=== PATIENT | male | born 1980 | race Two or more races ===

== ENCOUNTER 2023-06-14 19:05 | Emergency (ER) | payer MEDICARE, SELFPAY ==
[2023-06-14 19:09] VITALS: BP 115/67; PULSE 88; TEMP 36.8; O2SAT 96; BMI 38.3
--- NOTE | 2023-06-14 19:22 | ED_ITS ---
HPI HPI - Back Pain/Injury General Chief Complaint: Back Pain/Injury Stated Complaint: lower back pain Time Seen by Provider: 06/14/23 19:09 Source: patient Mode of arrival: walk-in Limitations: no limitations History of Present Illness HPI Narrative: Patient is a 42-year-old male with a history of chronic low back pain. He states in the last 2 days he has had an increase in pain to the right low back. He has had no injury or trauma. He denies any radicular pain to the legs, he has no paresthesias, urinary symptoms or incontinence. He was seeing a primary care provider in [place] who is prescribing his medications, he takes Lyrica and has been on [place] in the past. He does not currently have a PCP and does not have a specialist for his spine. He has had previous imaging of his back. No medications taken prior to arrival. Related Data Home Medications ?Medication ?Instructions ?Recorded ?Confirmed amlodipine 5 mg tablet 5 mg PO DAILY 06/14/23 06/14/23 duloxetine 60 mg capsule,delayed 60 mg PO BID 06/14/23 06/14/23 release lisinopril 30 mg tablet 30 mg PO DAILY 06/14/23 06/14/23 metformin 500 mg tablet 500 mg PO BID 06/14/23 06/14/23 Previous Rx's ?Medication ?Instructions ?Recorded hydrocodone 5 mg-acetaminophen 325 1 tab PO Q6H PRN pain 3 days #12 06/14/23 mg tablet tabs methocarbamol 750 mg tablet 750 mg PO TID PRN pain #20 tabs 06/14/23 Allergies Allergy/AdvReac Type Severity Reaction Status Date / Time ibuprofen AdvReac Mild Verified 06/14/23 19:13 Opioid HPI Opioid Management Most Recent Opioid Data: Last Pain Scale 10 06/14/23 19:24 Last MAR Pain Assessment 06/14/23 19:24 Review of Systems ROS Constitutional Denies: fever or chills Cardiovascular Denies: chest pain Respiratory Denies: shortness of breath Gastrointestinal Denies: abdominal pain, nausea or vomiting Genitourinary Denies: painful urination Musculoskeletal Reports: back pain; Denies: neck pain or extremity pain Integumentary/Breast Denies: rash Neurological Denies: headache Hematologic/Lymphatic Denies: easy bruising or easy bleeding Exam Narrative Exam Narrative: Gen.: Awake, alert, in no distress Head: Normocephalic, atraumatic ENT: Moist mucous membranes Respiratory: No respiratory distress Gastrointestinal: Abdomen is soft, nondistended and nontender to palpation Back: Diffuse tenderness of the paraspinal muscles of the right lumbar spine, no midline point tenderness of the lumbar spine, no obvious deformity or step-off. No rashes or CVA tenderness. Extremities: Moves extremities equally, Normal dorsiflexion and plantarflexion of lower extremities, no decrease in sensation to the medial thighs Psych: Normal mood and affect Neuro: No focal neuro deficit Skin: Warm, dry, intact Constitutional Vital Signs, click to edit/add: Last Vital Signs Temp 98.3 F 06/14/23 19:09 Pulse 88 06/14/23 19:09 Resp 18 06/14/23 19:09 BP 115/67 06/14/23 19:09 Pulse Ox 96 06/14/23 19:09 O2 Del Method Room Air 06/14/23 19:09 Course Vital Signs Vital signs: Vital Signs Temperature 98.3 F 06/14/23 19:09 Pulse Rate 88 06/14/23 19:09 Respiratory Rate 18 06/14/23 19:09 Blood Pressure 115/67 06/14/23 19:09 Pulse Oximetry 96 06/14/23 19:09 Oxygen Delivery Method Room Air 06/14/23 19:09 Temperature 98.3 F 06/14/23 19:09 Pulse Rate 88 06/14/23 19:09 Respiratory Rate 18 06/14/23 19:09 Blood Pressure 115/67 06/14/23 19:09 Pulse Oximetry 96 06/14/23 19:09 Oxygen Delivery Method Room Air 06/14/23 19:09 MDM - Back Pain/Injury MDM Narrative Medical decision making narrative: No indication for imaging at this time as the patient has had no new mechanism of injury or trauma. He has a normal neuroexam with no focal neurodeficit. OARRS reviewed showing that the patient has been on Lyrica and narcotics in the past from one provider but does not currently have any active prescriptions. He was given a short course of analgesics and muscle relaxants. Treated with Solu- Medrol in the ER but due to his diabetes, we will avoid steroids for home and he is unable to take NSAIDs due to history of gastric bypass. Rest, ice, gentle stretching. Follow-up with PCP and spinal surgery and return to the ER if symptoms change or worsen. Patient given referrals for new primary care providers taking patients as well as local spinal surgery. Medical Records Attestation: I reviewed the patient's medical records. Discharge Plan Discharge Stand Alone Forms: Portal Instructions Chief Complaint: Back Pain/Injury Clinical Impression: Acute exacerbation of chronic low back pain Patient Disposition: Home, Self-Care Time of Disposition Decision: 19:19 Condition: Good Prescriptions / Home Meds: New hydrocodone-acetaminophen 5-325 mg tablet 1 tab PO Q6H PRN (Reason: pain) 3 Days Qty: 12 0RF Rx Instructions: DX: M54.5 methocarbamol 750 mg tablet 750 mg PO TID PRN (Reason: pain) Qty: 20 0RF No Action metformin 500 mg tablet 500 mg PO BID amlodipine 5 mg tablet 5 mg PO DAILY lisinopril 30 mg tablet 30 mg PO DAILY duloxetine 60 mg capsule,delayed release(DR/EC) 60 mg PO BID Print Language: Comoran Instructions: Acute Low Back Pain (ED) Referrals: Socrates Alcantar MD [Physician] - 1 week (Spinal surgery) Discharge Date/Time: 06/14/23 19:40
[2023-06-14] MEDS: OXYCODONE HCL/ACETAMINOPHEN 5MG/325MG 1 TAB PO (19:24)
[2023-06-14] MEDS: METHYLPREDNISOLONE SOD SUCC PF 125 MG/2 ML VIAL IM (19:24)
[2023-06-14] MEDS: ORPHENADRINE 60 MG/ 2 ML VIAL IM (19:24)
== END 2023-06-14 19:40 | disposition home or self-care (01) ==
PROVIDERS: Emergency Provider Internal Medicine
DX: M54.50 Low back pain, unspecified (principal); G89.29 Other chronic pain; Z79.899 Other long term (current) drug therapy; Z79.84 Long term (current) use of oral hypoglycemic drugs
CPT/HCPCS: 96372; 99284; J2919

== ENCOUNTER 2023-06-21 09:59 | Outpatient (OUT) | payer MEDICARE, SELFPAY ==
--- NOTE | 2023-06-21 | XR_ITS ---
The [address] [address] Patient Name: CESARIO ARNOLD MRN: [id number] date: 1980 Sex: M Assigned Patient Location: Current Patient Location: Accession/Order Number: [id number] Exam Date: 06/21/2023 10:10 Report Date: 06/22/2023 07:06 At the request of: JESSICA HARVEY Procedure: XR lumbar spine min 4V EXAMINATION: XR lumbar spine min 4V HISTORY: LUMBAR SPINE PAIN COMPARISON: CT L-spine 03/24/2022 FINDINGS: BONES: Minimal grade 1 retrolisthesis of L1 on 2 and: Stable between flexion, neutral, extension. No fracture or bone lesion. No significant facet arthropathy. DISC SPACES: No significant disc height narrowing, subluxation, or endplate abnormality. PARASPINOUS: Negative. No paraspinous abnormality is seen. OTHER: Negative. XR/XR lumbar spine min 4V IMPRESSION: 1. Minimal degenerative changes; not appreciably changed. Electronically authenticated by: NILO PLASENCIA Date: 06/22/2023 07:06
== END 2023-06-21 10:00 | disposition home or self-care (01) ==
LOC: EC 10:00
PROVIDERS: Visit Provider Orthopaedic Surgery Orthopaedic Surgery of the Spine
DX: M54.50 Low back pain, unspecified (principal)
CPT/HCPCS: 72110

== ENCOUNTER 2023-06-28 06:59 | Outpatient (OUT) | payer MEDICARE, SELFPAY ==
--- NOTE | 2023-06-28 | CT_ITS ---
[address] [address] Patient Name: CESARIO ARNOLD MRN: [facility]:[id number] date: 1980 Sex: M Assigned Patient Location: MRI Current Patient Location: MRI Accession/Order Number: [id number] Exam Date: 06/28/2023 08:45 Report Date: 06/28/2023 11:29 At the request of: JESSICA HARVEY Procedure: CT lumbar spine wo con EXAM: CT lumbar spine wo con HISTORY: intractable back pain COMPARISON: Lumbar spine radiographs 06/21/2023, CT lumbar spine 03/24/2022. TECHNIQUE: Axial noncontrast CT imaging of the lumbar spine was performed with coronal and sagittal reformats. This CT exam was performed using one or more of the following dose reduction techniques: Automated exposure control, adjustment of the MA and/or kV according to patient size, or use of iterative reconstruction technique. FINDINGS: Alignment: No substantial subluxation. Vertebrae: There is similar minimal chronic posterior superior endplate height loss at L1 unchanged from prior. No acute fracture. Degenerative changes: T12-L1: Mild disc height loss. Partially calcified left central protrusion unchanged from prior with minimal canal stenosis. No substantial foraminal stenosis. L1-L2: No substantial canal or foraminal stenosis. L2-L3: Schmorl's nodes are present. Mild diffuse disc bulge with marginal osteophytic spurring. Mild facet arthropathy. No substantial canal or foraminal stenosis. L3-L4: Schmorl's nodes are present. Mild disc height loss. Mild diffuse disc bulge with small right central protrusion. No substantial canal stenosis. Mild right and minimal left foraminal stenosis. L4-L5: Mild diffuse disc bulge with tiny central protrusion. No substantial canal stenosis. Mild bilateral foraminal stenosis. L5-S1: No substantial canal or foraminal stenosis. Upper Sacrum: No focal lesion identified. Additional comments: Visualized soft tissues of the abdomen appear grossly unremarkable. CT/CT lumbar spine wo con IMPRESSION: 1. No acute fracture or malalignment of the lumbar spine. 2. Minimal chronic chronic posterior height loss at L1 unchanged from 2022. 3. Similar appearance of the lumbar spine compared to 03/24/2022 with mild degenerative changes detailed above. Electronically authenticated by: OLGA BUNCH Date: 06/28/2023 11:29
== END 2023-06-28 07:00 | disposition home or self-care (01) ==
PROVIDERS: Visit Provider Orthopaedic Surgery Orthopaedic Surgery of the Spine
DX: M54.50 Low back pain, unspecified (principal); M51.36 Other intervertebral disc degeneration, lumbar region
CPT/HCPCS: 72131

== ENCOUNTER 2023-07-15 11:11 | Outpatient (OUT) | payer MEDICARE, SELFPAY ==
--- NOTE | 2023-07-15 12:40 | P.CN_ITS ---
Consult Note: HPI Data of Consult Patient: new to practice Consult date: 07/15/23 Requesting Physician: Marina Stein MD Primary Care Provider: Non-Staff Physician, Consult Narrative Reason for consult: Low back, bilateral lower extremity pain Narrative: 42yom who presents for evaluation. longstanding low back pain with radiation into bilateral lower extremities. imaging shows multilevel degenerative changes, bilateral foraminal stenosis at l4-5. has been evaluated by neurosurgery, who did not recommend surgery at this time. has engaged in >6 weeks of provider directed home exercise program, without benefit. uses flexeril, lyrica, cymbalta, with some benefit. norco has been helpful before. denies adverse med side effects. cc:: CC: Marina Stein MD Review of Systems ROS Status of ROS 10 or more systems reviewed and unremark able except as noted in history and below Meds Home Medications and Allergies Home Medications ?Medication ?Instructions ?Recorded ?Confirmed ?Type amlodipine 5 mg tablet 5 mg PO DAILY 06/14/23 06/14/23 History duloxetine 60 mg capsule,delayed 60 mg PO BID 06/14/23 06/14/23 History release hydrocodone 5 mg-acetaminophen 325 1 tab PO Q6H PRN pain 3 days #12 06/14/23 Rx mg tablet tabs lisinopril 30 mg tablet 30 mg PO DAILY 06/14/23 06/14/23 History metformin 500 mg tablet 500 mg PO BID 06/14/23 06/14/23 History methocarbamol 750 mg tablet 750 mg PO TID PRN pain #20 tabs 06/14/23 Rx Allergies Allergy/AdvReac Type Severity Reaction Status Date / Time ibuprofen AdvReac Mild Verified 06/14/23 19:13 Exam Narrative Exam Narrative: Psych-alert and oriented x 3. Attentive and appropriate, constitutionally normal, displays normal mood and affect per situation. There are no obvious deficits in memory, reasoning, or intellect.? Skin-no obvious rashes, bruising, erythema noted to the patient's area of pain.? Extremities- extremities are warm with minimal edema and palpable pulses. Lumbar-tenderness to palpation noted in the lumbar spine and paraspinal musculature. Pain is elicited with flexion, extension, and lateral rotation of the lumbar spine. Range of motion is diminished with these motions. Facet loading maneuvers are positive.? Strength-noted to be unremarkable with the exception of decreased strength rated at 4 out of 5 in bilateral quadriceps femoris, anterior tibialis. Sensory-no notable sensory deficits in the bilateral lower extremities to touch or pinprick in all dermatomal distributions with the exception to decreased sensation to the bilateral L3, 4, 5 dermatomal distribution Coordination remains intact.? Gait remains non-antalgic. Assessment and Plan Assessment and Plan (1) Lumbar stenosis with neurogenic claudication: Plan 42yom who presents for evaluation. imaging reviewed, as noted. given symptoms and imaging, prudent to attempt bilateral l4-5 tfesi under fluoroscopic guidance. he is in agreement. meds reviewed. will tryial etodolac 400mg bid prn. uds obtained. follow up after procedure.
== END 2023-07-15 11:12 | disposition home or self-care (01) ==
LOC: PM 11:11
PROVIDERS: Visit Provider Anesthesiology
DX: M48.062 Spinal stenosis, lumbar region with neurogenic claudication (principal)
CPT/HCPCS: G0463

== ENCOUNTER 2023-08-05 10:53 | Day surgery (SDC) | payer MEDICARE, SELFPAY ==
[2023-08-05 11:39] LABS: Glucometer 93 mg/dL (74-106)
[2023-08-05 11:44] VITALS: BP 127/71; PULSE 76; TEMP 36.5; O2SAT 99
[2023-08-05 12:14] VITALS: BP 160/88; PULSE 65; O2SAT 96
[2023-08-05] MEDS: 0.9 % SODIUM CHLORIDE 10 ML SYRINGE - SALINE FLUSH INJ (12:14)
[2023-08-05] MEDS: BUPIVACAINE HCL 0.25% PF 25 MG/10 ML VIAL INJ (12:15)
[2023-08-05] MEDS: IOHEXOL 240 MG/ML - 10 ML VIAL INJ (12:15)
[2023-08-05] MEDS: LIDOCAINE HCL 2% PF 100 MG/5 ML VIAL INJ (12:15)
[2023-08-05] MEDS: TRIAMCINOLONE ACETONIDE 40 MG/ML VIAL INJ (12:15)
--- NOTE | 2023-08-05 12:16 | W.PM.PROCNOT ---
Date of procedure: 08/05/23 Pre-op diagnosis: Lumbar stenosis with neurogenic claudication Post-op diagnosis: same as pre-op Procedure: Procedure: Bilateral L4-5 transforaminal epidural steroid injection Medications: Bupivacaine 0.25% 2cc, lidocaine 2% 1cc, kenalog 80mg The patient was seen and examined in the preoperative holding area.? Informed consent was obtained and placed on the chart.? Patient was brought to the medical procedure unit and placed in the prone position where a timeout was completed verifying the correct patient, procedure site, position, and planned special equipment using sterile aseptic technique.? Under direct fluoroscopic visualization a 25-gauge Quincke tipped spinal needle was advanced at level left L4-5 to the designated neural foramen where contrast dye was injected to show adequate spread.? There was no evidence of vascular or adverse uptake.? Epidural spread was appreciated.? The above-mentioned injectate was then placed in a 1.5 mL aliquot preceded by negative aspiration.? The needle was removed. The same procedure, at the same level, was completed on the opposite side. ? Patient was taken to the postprocedural recovery area and monitored for an appropriate length of time before found suitable for discharge in the accompaniment of a responsible adult. Anesthesia: Local Surgeon: Marina Steni Pathology: none sent Condition: stable Disposition: no change
[2023-08-05 12:17] VITALS: BP 126/62; PULSE 67; O2SAT 97
== END 2023-08-05 12:20 | disposition home or self-care (01) ==
LOC: SURGOUT 10:54
PROVIDERS: Visit Provider Anesthesiology
DX: M48.062 Spinal stenosis, lumbar region with neurogenic claudication (principal); Z79.84 Long term (current) use of oral hypoglycemic drugs
CPT/HCPCS: 36415; 64483; 82948; Q9966

== ENCOUNTER 2023-08-22 12:11 | Outpatient (OUT) | payer MEDICARE, SELFPAY ==
--- NOTE | 2023-08-22 12:19 | P.CN_ITS ---
Consult Note: HPI Data of Consult Patient: known to practice within the last 3 years Consult date: 07/15/23 Requesting Physician: Jenny Ledesma NP Primary Care Provider: Non-Staff Physician, MD Consult Narrative Reason for consult: Low back, bilateral lower extremity pain Narrative: 42yom who presents for evaluation. longstanding low back pain with radiation into bilateral lower extremities. imaging shows multilevel degenerative changes, bilateral foraminal stenosis at l4-5. has been evaluated by neurosurgery, who did not recommend surgery at this time. has engaged in >6 weeks of provider directed home exercise program, without benefit. uses flexeril, lyrica, cymbalta, with some benefit. norco has been helpful before. denies adverse med side effects. Recently underwent bilateral L4-5 TFESI with 40% improvement for 2 days, no ongoing improvement. Pain 9/10 throbbing burning. cc:: CC: Jenny Ledesma NP Review of Systems ROS Status of ROS 10 or more systems reviewed and unremark able except as noted in history and below Musculoskeletal Reports: back pain and extremity pain PFSH PFS Medical History (Updated 07/15/23 @ 13:29 by Marybeth Ashby) Diabetes ?E11.9 - Type 2 diabetes mellitus without complications (ICD-10) High blood pressure ?I10 - Essential (primary) hypertension (ICD-10) Meds Home Medications and Allergies Home Medications ?Medication ?Instructions ?Recorded ?Confirmed ?Type amlodipine 5 mg tablet 5 mg PO DAILY 06/14/23 08/05/23 History duloxetine 60 mg capsule,delayed 60 mg PO BID 06/14/23 08/05/23 History release lisinopril 30 mg tablet 30 mg PO DAILY 06/14/23 08/05/23 History metformin 500 mg tablet 500 mg PO BID 06/14/23 08/05/23 History clonidine HCl 0.2 mg tablet 0.5 mg DAILY 07/15/23 History cyclobenzaprine 10 mg tablet 10 mg PO DAILY 07/15/23 08/05/23 History etodolac 400 mg tablet 400 mg PO BID 07/15/23 08/05/23 History pregabalin 100 mg capsule (Lyrica) 100 mg PO BID 07/15/23 08/05/23 History Allergies Allergy/AdvReac Type Severity Reaction Status Date / Time ibuprofen AdvReac Mild Verified 08/05/23 11:42 Exam Narrative Exam Narrative: Psych-alert and oriented x 3. Attentive and appropriate, constitutionally normal, displays normal mood and affect per situation. There are no obvious deficits in memory, reasoning, or intellect.? Skin-no obvious rashes, bruising, erythema noted to the patient's area of pain.? Extremities- extremities are warm with minimal edema and palpable pulses. Lumbar-tenderness to palpation noted in the lumbar spine and paraspinal musculature. Pain is elicited with flexion, extension, and lateral rotation of the lumbar spine. Range of motion is diminished with these motions. Facet loading maneuvers are positive.? Strength-noted to be unremarkable with the exception of decreased strength rated at 4 out of 5 in bilateral quadriceps femoris, anterior tibialis. Sensory-no notable sensory deficits in the bilateral lower extremities to touch or pinprick in all dermatomal distributions with the exception to decreased sensation to the bilateral L3,4,5 dermatomal distribution Coordination remains intact.? Gait remains non-antalgic. Results Additional Findings Additional findings: If on a controlled substance or opioids, I have checked an OARRS report on this patient and there are no aberrancies noted in the prescribing history.??If on a controlled substance or opioid a drug screen was completed and reviewed within the last year, and if there has not been a drug screen completed we ordered one today to monitor higher risk, state monitored pain medication use. As part of providing excellent, safe, comprehensive care, the following was completed at our patient's visit: 1. A medication reconciliation and review to ensure accurate knowledge of current/active medications, including asking our patients to inform us about any [id number] medications or herbal remedies/nutritional supplements/alternative remedies. 2. A review to specifically ensure our patients have had annual screening for screening for depression, screening for tobacco use, and screening for unhealthy alcohol use. For concerning screenings had a discussion with the patient, provided patient education, and recommended follow-up with primary care provider when appropriate. If patient noted with a risk of falling, they received education on strength, gait, and balance training to prevent future risk of falling. Assessment and Plan Assessment and Plan (1) Lumbar stenosis with neurogenic claudication: Plan 42yom who presents for evaluation. imaging reviewed, as noted. given symptoms and imaging, prudent to attempt bilateral l3-4 tfesi under fluoroscopic guidance. he is in agreement. NNCP marijuana use. continue medications through PCP. avoid NSAIDs, hx of gastric bypass. consider SCS trial if radicular pain/NC symptoms persist, consider bilateral L4- S1 MBBs for axial low back pain f/u 2 weeks after [facility]A
--- OUTSIDE RECORDS SUMMARY | 2023-08-22 12:26 | XMS_ITS | CCD ---
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 Spectrometry Performed By: #### L [id number] #### [facility] ([facility])) [address] [place] [address] BARBITURATES, URINE (CUTOFF 200 NG/ML) Negative Normal [facility] Comment on above: Order Comment: Please call [facility] at [phone] for Util[employer] consultation or assistance with interpretation if needed. Result Comment: Presumptive negative by immunoassay. Testing by mass spectrometry is available on request. INTERPRETIVE INFORMATION:Barbiturates Screen, U Positive Cutoff: 200 ng/mL Methodology: Immunoassay Performed By: #### L [id number] #### [facility]) [address] [place] [address] BENZOYLECGONINE, URINE (CUTOFF 150 NG/ML) Negative Normal [facility] Comment on above: Order Comment: Please call [facility] at [phone] for Util[employer] consultation or assistance with interpretation if needed. Result Comment: Presumptive negative by immunoassay. Testing by mass spectrometry is available on request. INTERPRETIVE INFORMATION:Cocaine Screen, U Positive Cutoff: 150 ng/mL Methodology: Immunoassay Performed By: #### L [id number] #### [facility]) [address] [place] [address] BUPRENORPHINE, URINE (CUTOFF 5 NG/ML) Not detected Normal [facility] Comment on above: Order Comment: Please call [facility] at [phone] for Utilities [employer]ator [employer] Dra[employer] consultation or assistance with interpretation if needed. Result Comment: INTE RPRETIVE INFORMATION:Buprenorphine, U Positive Cutoff: 5 ng/mL Methodology: Mass Spectrometry Performed By: #### L [id number] #### [facility])) [address] [place] [address] CARISOPRODOL, URINE (CUT-OFF 100 NG/ML) Negative Normal [facility] Comment on above: Order Comment: Please call [facility] at [phone] for Utilities [employer]ator [employer] Dra[employer] consultation or assistance with interpretation if needed. Result Comment: Presumptive negative by immunoassay. Testing by mass spectrometry is available on request. INTERPRETIVE INFORMATION: Carisoprodol Screen, U Positive Cutoff: 100 ng/mL Methodology: Immunoassay The carisoprodol immunoassay has cross-reactivity to carisoprodol and meprobamate. Performed By: #### L [id number] #### [employer]) [address] [place] [address] CLONAZEPAM, URINE (CUTOFF 20 NG/ML) Not detected Normal [facility] Comment on above: Order Comment: Please call [employer] at [phone] for Utilities [employer]ator [employer] Drafter consultation or assistance with interpretation if needed. Result Comment: INTE RPRETIVE INFORMATION:Clonazepam, U Positive Cutoff: 20 ng/mL Methodology: Mass Spectrometry Performed By: #### L [id number] #### [facility] ([facility]) [address] [place] [address] CODEINE, URINE (CUTOFF 40 NG/ML) Not detected Normal [facility] Comment on above: Order Comment: Please call [employer] at [phone] for Utilities [employer]ator [employer] Dra[employer] consultation or assistance with interpretation if needed. Result Comment: INTE RPRETIVE INFORMATION: Codeine, U Positive Cutoff: 40 ng/mL Methodology: Mass Spectrometry Performed By: #### L [id number] #### [facility] ([facility]) [address] [place] [address] CREATININE, URINE 39.1 mg/dL Normal 20.0-400.0 [facility] Comment on above: Order Comment: Please call [employer] at [phone] for Utilities [employer]ator [employer] Dra[employer] consultation or assistance with interpretation if needed. Performed By: #### L [id number] #### [facility] ([employer]) [address] [place] [address] DIAZEPAM, URINE (CUTOFF 50 NG/ML) Not detected Normal [facility] Comment on above: Order Comment: Please call [employer] at [phone] for Utilities Est[employer]ator [employer] Drafter consultation or assistance with interpretation if needed. Result Comment: INTE RPRETIVE INFORMATION:Diazepam, U Positive Cutoff: 50 ng/mL Methodology: Mass Spectrometry Performed By: #### L [id number] #### [facility] [address] [place] [address] EER TGT DRUG PROF, MS/EMIT, UR See Note Normal [facility] Comment on above: Order Comment: Please call [employer] at [phone] for Utilities Est[employer]ator [employer] Drafter consultation or assistance with interpretation if needed. Result Comment: Auth orized individuals can access the [employer] using the following link: [email or web address] Performed By: [employer] [address] [place] [address] Social Services Director: Alvaro Bird MD, PhD CLIA Number: [id number] Performed By: #### L [id number] #### [facility] ([facility])) [address] [place] [address] ETHYL GLUCURONIDE, URINE (CUTOFF 500 NG/ML) Negative Normal [facility] Comment on above: Order Comment: Please call [facility] at [phone] for Utilities [employer] consultation or assistance with interpretation if needed. Result Comment: Presumptive negative by immunoassay. Testing by mass spectrometry is available on request. INTERPRETIVE INFORMATION:Ethyl Glucuronide Screen, U Positive Cutoff: 500 ng/mL Methodology: Immunoassay Performed By: #### L [id number] #### [facility] ([facility])) [address] [place] [address] FENTANYL, URINE (CUTOFF 2 NG/ML) Not detected Normal [facility] Comment on above: Order Comment: Please call [facility] at [phone] for Utilities [employer]ator [employer] Dra[employer] consultation or assistance with interpretation if needed. Result Comment: INTE RPRETIVE INFORMATION:Fentanyl, U Positive Cutoff: 2 ng/mL Methodology: Mass Spectrometry Performed By: #### L [id number] #### [facility] ([facility])) [address] [place] [address] GABAPENTIN, URINE (CUTOFF 100 NG/ML) Not detected Normal [facility] Comment on above: Order Comment: Please call [facility] at [phone] for Utilities [employer]ator [employer] consultation or assistance with interpretation if needed. Result Comment: INTE RPRETIVE INFORMATION:Gabapentin, U Positive Cutoff: 3,000 ng/mL Methodology: Mass Spectrometry Performed By: #### L [id number] #### [facility] ([facility])) [address] [place] [address] HYDROCODONE, URINE (CUTOFF 40 NG/ML) Not detected Normal [facility] Comment on above: Order Comment: Please call [facility] at [phone] for Utilities Est[employer]ator [employer] Dra[employer] consultation or assistance with interpretation if needed. Result Comment: INTE RPRETIVE INFORMATION:Hydrocodone, U Positive Cutoff: 40 ng/mL Methodology: Mass Spectrometry Performed By: #### L [id number] #### [facility] ([facility])) [address] [place] [address] HYDROMORPHONE, URINE (CUTOFF 20 NG/ML) Not detected Normal [facility] Comment on above: Order Comment: Please call [facility] at [phone] for Utilities Est[employer]ator [employer] Drafter consultation or assistance with interpretation if needed. Result Comment: INTE RPRETIVE INFORMATION:Hydromorphone, U Positive Cutoff: 20 ng/mL Methodology: Mass Spectrometry Performed By: #### L [id number] #### [facility] ([facility])) [address] [place] [address] LORAZEPAM, URINE (CUTOFF 60 NG/ML) Not detected Normal [facility] Comment on above: Order Comment: Please call [facility] at [phone] for Utilities Est[employer]ator [employer] Dra[employer] consultation or assistance with interpretation if needed. Result Comment: INTE RPRETIVE INFORMATION:Lorazepam, U Positive Cutoff: 60 ng/mL Methodology: Mass Spectrometry Performed By: #### L [id number] #### [facility] ([facility])) [address] [place] [address] MARIJUANA METABOLITE, URINE (CUTOFF 20 NG/ML) PresumptivePOS Normal [facility] Comment on above: Order Comment: Please call [facility] at [phone] for Utilities [employer] consultation or assistance with interpretation if needed. Result Comment: Presumptive positive by immunoassay. Testing by mass spectrometry is available on request. INTERPRETIVE INFORMATION: THC (Cannabinoids) Screen, U Positive Cutoff: 50 ng/mL Methodology: Immunoassay Performed By: #### L [id number] #### [facility] ([facility])) [address] [place] [address] MDA, URINE (CUTOFF 200 NG/ML) Not detected Normal [facility] Comment on above: Order Comment: Please call [facility] at [phone] for Utilities [employer]ator [employer] Dra[employer] consultation or assistance with interpretation if needed. Result Comment: INTE RPRETIVE INFORMATION:MDA, U Positive Cutoff: 200 ng/mL Methodology: Mass Spectrometry Performed By: #### L [id number] #### [facility] ([facility])) [address] [place] [address] MDEA- MARCIA, URINE (CUTOFF 200 NG/ML) Not detected Normal [facility] Comment on above: Order Comment: Please call [facility] at [phone] for Utilities Est[employer]ator [employer] Drafter consultation or assistance with interpretation if needed. Result Comment: INTE RPRETIVE INFORMATION:MDEA, U Positive Cutoff: 200 ng/mL Methodology: Mass Spectrometry Performed By: #### L [id number] #### [facility] ([facility]) [address] [place] [address] MDMA- ECSTASY, URINE (CUTOFF 200 NG/ML) Not detected Normal [facility] Comment on above: Order Comment: Please call [facility] at [phone] for Utilities Estimator [employer] Drafter consultation or assistance with interpretation if needed. Result Comment: INTE RPRETIVE INFORMATION:MDMA, U Positive Cutoff: 200 ng/mL Methodology: Mass Spectrometry Performed By: #### L [id number] #### [facility] ([facility]) [address] [place] [address] MEPERIDINE METABOLITE, URINE (CUTOFF 50 NG/ML) Not detected Normal [facility] Comment on above: Order Comment: Please call [facility] at [phone] for Utilities Est[employer]ator [employer] Drafter consultation or assistance with interpretation if needed. Result Comment: INTE RPRETIVE INFORMATION:Meperidine metabolite, U Positive Cutoff: 50 ng/mL Methodology: Mass Spectrometry Performed By: #### L [id number] #### [facility] ([employer]) [address] [place] [address] METHADONE, URINE (CUTOFF 150 NG/ML) Negative Normal [facility] Comment on above: Order Comment: Please call [facility] at [phone] for Utilities [employer]ator [employer] Drafter consultation or assistance with interpretation if needed. Result Comment: Presumptive negative by immunoassay. Testing by mass spectrometry is available on request. INTERPRETIVE INFORMATION: Methadone Screen, U Positive Cutoff: 150 ng/mL Methodology: Immunoassay Performed By: #### L [id number] #### [facility] ([employer]) [address] [place] [address] METHAMPHETAMINE, URINE (CUTOFF 200 NG/ML) Not detected Normal [facility] Comment on above: Order Comment: Please call [facility] at [phone] for Utilities Estimator [employer] Drafter consultation or assistance with interpretation if needed. Result Comment: INTE RPRETIVE INFORMATION:Methamphetamine, U Positive Cutoff: 200 ng/mL Methodology: Mass Spectrometry Performed By: #### L [id number] #### [facility] ([employer]) [address] [place] [address] METHYLPHENIDATE, URINE (CUTOFF 100 NG/ML) Not detected Normal [facility] Comment on above: Order Comment: Please call [facility] at [phone] for Utilities [employer]ator [employer] Dra[employer] consultation or assistance with interpretation if needed. Result Comment: INTE RPRETIVE INFORMATION:Methylphenidate, U Positive Cutoff: 100 ng/mL Methodology: Mass Spectrometry Performed By: #### L [id number] #### [facility] ([facility])) [address] [place] [address] MIDAZOLAM, URINE (CUTOFF 20 NG/ML) Not detected Normal [facility] Comment on above: Order Comment: Please call [facility] at [phone] for Utilities [employer]ator [employer] Dra[employer] consultation or assistance with interpretation if needed. Result Comment: INTE RPRETIVE INFORMATION:Midazolam, U Positive Cutoff: 20 ng/mL Methodology: Mass Spectrometry Performed By: #### L [id number] #### [facility] ([place] [address] MORPHINE, URINE (CUTOFF 20 NG/ML) Not detected Normal [facility] Comment on above: Order Comment: Please call [facility] at [phone] for Utilities [employer] consultation or assistance with interpretation if needed. Result Comment: INTE RPRETIVE INFORMATION:Morphine, U Positive Cutoff: 20 ng/mL Methodology: Mass Spectrometry Performed By: #### L [id number] #### [facility] ([address] [address] NALOXONE, URINE (CUTOFF 100 NG/ML) Not detected Normal [facility] Comment on above: Order Comment: Please call [facility] at [phone] for Utilities [employer]ator [employer] Dra[employer] consultation or assistance with interpretation if needed. Result Comment: INTE RPRETIVE INFORMATION:Naloxone, U Positive Cutoff: 100 ng/mL Methodology: Mass Spectrometry Performed By: #### L [id number] #### [facility] ([facility])) [address] [place] [address] NORBUPRENORPHINE, URINE (CUTOFF 20 NG/ML) Not detected Normal [facility] Comment on above: Order Comment: Please call [facility] at [phone] for Utilities [employer]ator [employer] Dra[employer] consultation or assistance with interpretation if needed. Result Comment: INTE RPRETIVE INFORMATION:Norbuprenorphine, U Positive Cutoff: 20 ng/mL Methodology: Mass Spectrometry Performed By: #### L [id number] #### [facility] ([facility]) [address] [place] [address] NORDIAZEPAM, URINE (CUTOFF 50 NG/ML) Not detected Normal [facility] Comment on above: Order Comment: Please call [facility] at [phone] for Utilities [employer] consultation or assistance with interpretation if needed. Result Comment: INTE RPRETIVE INFORMATION:Nordiazepam, U Positive Cutoff: 50 ng/mL Methodology: Mass Spectrometry Performed By: #### L [id number] #### [facility] ([facility]) [address] [place] [address] NORFENTANYL, URINE (CUTOFF 2 NG/ML) Not detected Normal [facility] Comment on above: Order Comment: Please call [facility] at [phone] for Utilities [employer] consultation or assistance with interpretation if needed. Result Comment: INTE RPRETIVE INFORMATION:Norfentanyl, U Positive Cutoff: 2 ng/mL Methodology: Mass Spectrometry Performed By: #### L [id number] #### [facility] ([facility]) [address] [place] [address] NORHYDROCODONE, URINE ???(CUTOFF 100 NG/ML) Not detected Normal [facility] Comment on above: Order Comment: Please call [facility] at [phone] for Utilities [employer]ator [employer] Dra[employer] consultation or assistance with interpretation if needed. Result Comment: INTE RPRETIVE INFORMATION:Norhydrocodone, U Positive Cutoff: 100 ng/mL Methodology: Mass Spectrometry Performed By: #### L [id number] #### [facility] ([facility]) [address] [place] [address] NOROXYCODONE, URINE ???(CUTOFF 100 NG/ML) Not detected Normal [facility] Comment on above: Order Comment: Please call [facility] at [phone] for Utilities [employer] Dra[employer] consultation or assistance with interpretation if needed. Result Comment: INTE RPRETIVE INFORMATION:Noroxycodone, U Positive Cutoff: 100 ng/mL Methodology: Mass Spectrometry Performed By: #### L [id number] #### [facility] ([facility])) [address] [place] [address] NOROXYMORPHONE, URINE ???(CUTOFF 100 NG/ML) Not detected Normal [facility] Comment on above: Order Comment: Please call [facility] at [phone] for Utilities [employer] consultation or assistance with interpretation if needed. Result Comment: INTE RPRETIVE INFORMATION:Noroxymorphone, U Positive Cutoff: 100 ng/mL Methodology: Mass Spectrometry Performed By: #### L [id number] #### [facility] ([facility])) [address] [place] [address] OXAZEPAM, URINE (CUTOFF 50 NG/ML) Not detected Normal [facility] Comment on above: Order Comment: Please call [facility] at [phone] for Utilities [employer] consultation or assistance with interpretation if needed. Result Comment: INTE RPRETIVE INFORMATION:Oxazepam, U Positive Cutoff: 50 ng/mL Methodology: Mass Spectrometry Performed By: #### L [id number] #### [facility] ([facility]) [address] [place] [address] OXYCODONE, URINE (CUTOFF 40 NG/ML) Not detected Normal [facility] Comment on above: Order Comment: Please call [facility] at [phone] for Utilities [employer] consultation or assistance with interpretation if needed. Result Comment: INTE RPRETIVE INFORMATION:Oxycodone, U Positive Cutoff: 40 ng/mL Methodology: Mass Spectrometry Performed By: #### L [id number] #### [facility] ([facility]) [address] [place] [address] OXYMORPHONE, URINE (CUTOFF 40 NG/ML) Not detected Normal [facility] Comment on above: Order Comment: Please call [facility] at [phone] for [employer]ities [employer] consultation or assistance with interpretation if needed. Result Comment: INTE RPRETIVE INFORMATION:Oxymorphone, U Positive Cutoff: 40 ng/mL Methodology: Mass Spectrometry Performed By: #### L [id number] #### [facility] ([employer]) [address] [place] [address] PCP, URINE (CUTOFF 25 NG/ML) Negative Normal [facility] Comment on above: Order Comment: Please call [facility] at [phone] for [employer] consultation or assistance with interpretation if needed. Result Comment: Presumptive negative by immunoassay. Testing by mass spectrometry is available on request. INTERPRETIVE INFORMATION:Phencyclidine Screen, U Positive Cutoff: 25 ng/mL Methodology: Immunoassay Performed By: #### L [id number] #### [facility] ([facility]) [address] [place] [address] PHENTERMINE, URINE (CUTOFF 100 NG/ML) Not detected Normal [facility] Comment on above: Order Comment: Please call [facility] at [phone] for Utilities Estimator And Drafter consultation or assistance with interpretation if needed. Result Comment: INTE RPRETIVE INFORMATION:Phentermine, U Positive Cutoff: 100 ng/mL Methodology: Mass Spectrometry Performed By: #### L [id number] #### [facility] ([employer]) [address] [place] [id number] PREGABALIN, URINE (CUTOFF 100 NG/ML) Present Normal [facility] Comment on above: Order Comment: Please call [facility] at [phone] for Utilities Estimator And Drafter consultation or assistance with interpretation if needed. Result Comment: INTE RPRETIVE INFORMATION:Pregabalin, U Positive Cutoff: 3,000 ng/mL Methodology: Mass Spectrometry Performed By: #### L [id number] #### [facility] ([employer]) [address] [place] [address] TAPENTADOL, URINE (CUTOFF 100 NG/ML) Not detected Normal [facility] Comment on above: Order Comment: Please call [facility] at [phone] for Utilities Estimator And Drafter consultation or assistance with interpretation if needed. Result Comment: INTE RPRETIVE INFORMATION:Tapentadol, U Positive Cutoff: 100 ng/mL Methodology: Mass Spectrometry Performed By: #### L [id number] #### [facility] ([employer]) [address] [place] [address] [id number]-X-[id number], URINE (CUTOFF 200 NG/ML) Not detected Normal [facility] Comment on above: Order Comment: Please call [facility] at [phone] for Utilities Estimator And Drafter consultation or assistance with interpretation if needed. Result Comment: INTE RPRETIVE INFORMATION:Xtgenlmtfq-j-Mhlq, U Positive Cutoff: 200 ng/mL Methodology: Mass Spectrometry Performed By: #### L [id number] #### [facility] ([facility] [address] [place] [address] TARGETED DRUG PROFILE PANEL See Below Normal [facility] Comment on above: Order Comment: Please call [facility] at [phone] for Utilities Estimator And Drafter consultation or assistance with interpretation if needed. Result Comment: Meth odology: Qualitative Enzyme Immunoassay and Qualitative Liquid Chromatography-Tandem Mass Spectrometry, Quantitative Spectrophotometry The absence of expected drug(s) and/or drug metabolite(s) may indicate non-compliance, inappropriate timing of specimen collection relative to drug administration, poor drug absorption, diluted/adulterated urine, or limitations of testing. The concentration must be greater than or equal to the cutoff to be reported as present. If specific drug concentrations are required, contact the laboratory within two weeks of specimen collection to request quantification by a second analytical technique. Interpretive questions should be directed to the laboratory. Results based on immunoassay detection that do not match clinical expectations should be interpreted with caution. Confirmatory testing by mass spectrometry for immunoassay-based results is available, if ordered within two weeks of specimen collection. Additional charges apply. For medical purposes only; not valid for forensic use. This test was developed and its performance characteristics determined by [employer]. It has not been cleared or approved by the US Food and Drug Administration. This test was performed in a CLIA certified laboratory and is intended for clinical purposes. Performed By: #### L [id number] #### [employer] ([facility] [address] [place] [address] TEMAZEPAM, URINE (CUTOFF 50 NG/ML) Not detected Normal [facility] Comment on above: Order Comment: Please call [facility] at [phone] for Utilities Estimator And Drafter consultation or assistance with interpretation if needed. Result Comment: INTE RPRETIVE INFORMATION:Temazepam, U Positive Cutoff: 50 ng/mL Methodology: Mass Spectrometry Performed By: #### L [id number] #### [facility] ([facility])) [address] [place] [address] TRAMADOL, URINE (CUTOFF 100 NG/ML) Negative Normal [facility] Comment on above: Order Comment: Please call [facility] at [phone] for Utilities Estimator And Drafter consultation or assistance with interpretation if needed. Result Comment: Presumptive negative by immunoassay. Testing by mass spectrometry is available on request. INTERPRETIVE INFORMATION:Tramadol Screen, U Positive Cutoff: 100 ng/mL Methodology: Immunoassay Performed By: #### L [id number] #### [facility] ([facility] [address] [place] [address] ZOLPIDEM METABOLITE, URINE (CUTOFF 100 NG/ML) Not detected Normal [facility] Comment on above: Order Comment: Please call [facility] at [phone] for Utilities Estimator And Drafter consultation or assistance with interpretation if needed. Result Comment: INTE RPRETIVE INFORMATION:Zolpidem Metabolite, U Positive Cutoff: 100 ng/mL Methodology: Mass Spectrometry Performed By: #### L [id number] #### [facility] ([facility] [address] [place] [address] ZOLPIDEM, URINE (CUTOFF 20 NG/ML) Not detected Normal [facility] Comment on above: Order Comment: Please call [facility] at [phone] for Utilities Estimator And Drafter consultation or assistance with interpretation if needed. Result Comment: INTE RPRETIVE INFORMATION:Zolpidem, U Positive Cutoff: 20 ng/mL Methodology: Mass Spectrometry Performed By: #### L [id number] #### [facility] ([facility] [address] [place] [address] [facility] 11-22-2022 Refill [id number] Chiquis Vieira Jr. 1980 M Date Provider Department Center 11/22/2022 [id number] SORIANO [facility] Comprehensiv Family History Problem Relation Age of Onset Kidney disease Mother Diabetes Mother Depression Mother Anxiety disorder Mother Diabetes Father Family Status - Relation Status Age at Mother Father Alive Reason for Visit and Comments: Med Refill [[id number]] Normal [facility] 2022 Refill [id number] Chiquis Vieira Jr. 1980 M Date Provider Department Center 2022 [id number], MANI [facility] Comprehensiv Family History Problem Relation Age of Onset Kidney disease Mother Diabetes Mother Depression Mother Anxiety disorder Mother Diabetes Father Family Status - Relation Status Age at Mother Father Alive Reason for Visit and Comments: Med Refill [[id number]] Normal [facility] 36on 10-29-2022 36 Script requested twi ce a request has already been sent to the provider. [facility] 10-29-2022 Refill [id number] Chiquis Vieira Jr. 1980 M Date Provider Department Center 10/29/2022 [id number] SORIANO [facility] Comprehensiv Family History Problem Relation Age of Onset Kidney disease Mother Diabetes Mother Depression Mother Anxiety disorder Mother Diabetes Father Family Status - Relation Status Age at Mother Father Alive Reason for Visit and Comments: Med Refill [[id number]] [facility] Office Visiton 10-22-2022 Follow-up visit [id number] Chiquis Vieira Jr. 1980 M Date Provider Department Center 10/22/2022 [id number] SORIANO [facility] Comprehensiv Family History Problem Relation Age of Onset Kidney disease Mother Diabetes Mother Depression Mother Anxiety disorder Mother Diabetes Father Family Status - Relation Status Age at Mother Father Alive Level of Service:42511 ID OFFICE/OUTPATIENT ESTABLISHED MOD MDM 30-39 MIN Reason for Visit and Comments: Med Refill [[id number]] - Patient states that he is here today for medication refills and would like to discuss getting diabetic shoes. [facility] 36on 10-11-2022 36 Patients fiance call ing for update on if refill has been placed as patient is out of medication. I at this time did educate caller on calling a few days before meds are supposed to be gone. Please advise. Thank you kindly. [facility] 10-11-2022 Refill [id number] Chiquis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 alert. Cranial Nerves: No cranial nerve deficit. Sensory: No sensory deficit. Psychiatric: Mood and Affect: Mood normal. Behavior: Behavior normal. Thought Content: Thought content normal. Judgment: Judgment normal. Assessment/Plan Diagnoses and all orders for this visit: Partial thickness burn of finger of left hand, initial encounter - bacitracin 500 unit/gram ointment; Apply topically in the morning and at bedtime. Apply to burn area - Ambulatory referral to Wound Clinic; Future - To return to clinic in 1 week or 2 weeks (2 weeks if seen by wound care clinic earlier) - Discussed with him about gauze dressing to keep area clean and dry and bacitracin for antibiotic ointment Numbness of upper extremity - Ambulatory referral to Neurology; Future - XR cervical spine complete 4 to 5 views; Future Chronic bilateral low back pain with bilateral sciatica Comments: on pain meds, PM denied any procedures, PT, conservative management Orders: - pregabalin (Lyrica) 100 mg capsule; Take 1 capsule (100 mg) by mouth in the morning and at bedtime. - Pain management drug panel, urine; Future Recurrent major depressive disorder, in partial remission (CMS/HCC) - DULoxetine (Cymbalta) [address] capsule; TAKE 1 CAPSULE(60 MG) BY MOUTH IN THE MORNING AND AT BEDTIME. DO NOT CRUSH OR CHEW Marijuana use - POCT [facility] Urine Drug Screen, Send out - Pain management drug panel, urine; Future Bilateral sciatica - CBC; Future - Basic metabolic panel; Future - POCT [facility] Urine Drug Screen, Send out - Pain management drug panel, urine; Future Diagnosis Plan 1. Partial thickness burn of finger of left hand, initial encounter bacitracin 500 unit/gram ointment Ambulatory referral to Wound Clinic 2. Numbness of upper extremity Ambulatory referral to Neurology XR cervical spine complete 4 to 5 views 3. Chronic bilateral low back pain with bilateral sciatica (more content not included)... [facility] Progress note 10-22-2022 Note Date & Type Note Facility 10-22-2022 Note Subjective Patient ID: Cesario Vieira . is a 41 y.o. male who presents for Med Refill (Patient states that he is here today for medication refills and would like to discuss getting diabetic shoes.). Med Refill Has chronic alyson back pain on opioid therapy due to resistant pain with conventional management PEG score with narcotics is 5/10 and he benefits from therapy, no constipation no other side effects, without the pain med the level is 8/10. OARRS checked. Drug urine is uptodate Last A1c 04/26 5.5 not on meds, discussed the need for metformin will start it MRI Lumbar spine showed 04/26 multi level DJD no canal stenosis diffuse buldging and disk disease MRI thoracic spine at that time showed concern for demyelinating disease At that time was referred to neurology but no visit documented so far. Advised to call and make appointment for this. Encouraged on losing weight and lifestyle changes HTN on 2 meds, BP is under control, low salt diet. He has gait problem and he needs new PT, will make referral. Review of Systems Musculoskeletal: Positive for back pain. All other systems reviewed and are negative. Objective Visit Vitals BP 110/70 (BP Location: Right arm, Patient Position: Sitting, BP Cuff Size: Large adult) Pulse 83 Temp 36.3 ???C (97.4 ???F) (Tympanic) Resp 20 Physical Exam Vitals and nursing note reviewed. Constitutional: General: He is not in acute distress. Appearance: Normal appearance. Cardiovascular: Rate and Rhythm: Normal rate and regular rhythm. Pulses: Normal pulses. Heart sounds: No murmur heard. No friction rub. No gallop. Pulmonary: Effort: Pulmonary effort is normal. No respiratory distress. Breath sounds: Normal breath sounds. No wheezing, rhonchi or rales. Abdominal: General: There is no distension. Palpations: Abdomen is soft. Tenderness: There is no abdominal tenderness. There is no guarding or rebound. Musculoskeletal: Right lower leg: No edema. Left lower leg: No edema. Skin: General: Skin is warm and dry. Neurological: Mental Status: He is alert and oriented to person, place, and time. Assessment/Plan Diagnoses and all orders for this visit: Chronic bilateral low back pain with bilateral sciatica Comments: on pain meds, PM denied any procedures, PT, conservative management Orders: - pregabalin (Lyrica) 100 mg capsule; Take 1 capsule (100 mg) by mouth in the morning and at bedtime. - Ambulatory referral to Physical Therapy; Future Class 2 obesity due to excess calories without serious comorbidity with body mass index (BMI) of 36.0 to 36.9 in adult Comments: Advised on lifestyle change, dietary referral Essential hypertension Comments: HTN under control on 2 meds, no change is needed Prediabetes Comments: will start him on Metformin Orders: - Ambulatory referral to Podiatry; Future - Comprehensive metabolic panel; Future - metFORMIN (Glucophage) 500 mg tablet; Take 1 tablet (500 mg) by mouth with breakfast and with evening meal. History of gastric bypass Comments: regaining weight Marijuana user Comments: admitted that he uses as needed for pain Diagnosis Plan 1. Chronic bilateral low back pain with bilateral sciatica pregabalin (Lyrica) 100 mg capsule Ambulatory referral to Physical Therapy on pain meds, PM denied any procedures, PT, conservative management 2. Class 2 obesity due to excess calories without serious comorbidity with body mass index (BMI) of 36.0 to 36.9 in adult Advised on lifestyle change, dietary referral 3. Essential hypertension HTN under control on 2 meds, no change is needed 4. Prediabetes Ambulatory referral to Podiatry Comprehensive metabolic panel metFORMIN (Glucophage) 500 mg tablet will start him on Metformin 5. History of gastric bypass regaining weight 6. Marijuana user admitted that he uses as needed for pain Orders Placed This Encounter Procedures Comprehensive metabolic panel Standing Status: Future Standing Expiration Date: 10/23/2023 Order Specific Question: Release to Patient Answer: Immediately Ambulatory referral to Podiatry Standing Status: Future Standing Expiration Date: 04/24/2023 Referral Priority: Routine Referral Type: Consultation Referral Reason: Specialty Services Required Requested Specialty: Podiatry Number of Visits Requested: 1 Ambulatory referral to Physical Therapy Standing Status: Future Standing Expiration Date: 04/24/2023 Referral Priority: Routine Referral Type: Therapy Referral Reason: Evaluation and Treat Requested Specialty: Physical Therapy Number of Visits Requested: 1 No results found for this or any previous visit (from the past 36 hour(s)). No follow-ups on file. [facility] Summary Purpose Family History No Family History Records FoundNo Family History Records FoundNo Family History Records FoundNo Family History Records Found Advance Directives No Advanced Directives Records FoundNo Advanced Directives Records FoundNo Advanced Directives Records FoundNo Advanced Directives Records Found Additional Source Comments (unrecognized sect ion and content) No Status Records FoundNo Status Records FoundNo Status Records FoundNo Status Records Found INFORMATION SOURCE (unrecogn ized section and content) DATE CREATED AUTHOR 07/06/2022 [facility] DATE CREATED AUTHOR AUTHOR'S ORGANIZ ATION 06/22/2023 [facility] DATE CREATED AUTHOR AUTHOR'S ORGANIZ ATION 08/13/2023 [facility] DATE CREATED AUTHOR AUTHOR'S ORGANIZ ATION 08/15/2023 [facility] FOR RECORDS PERTAINING TO PATIENTS WHO ARE OR HAVE BEEN ENROLLED IN A CHEMICAL DEPENDENCY/SUBSTANCEABUSE PROGRAM, SOME INFORMATION MAY BE OMITTED. This clinical summary was aggregated from multiple sources. Caution should be exercised in using it in the provision of clinical care. This summary normalizes information from multiple sources, and as a consequence, information in this document may materially change the coding, format and clinical context of patient data. In addition, data may be omitted in some cases. CLINICAL DECISIONS SHOULD BE BASED ON THE PRIMARY CLINICAL RECORDS. [facility] [employer] [facility]. provides no warranty or guarantee of the accuracy or completeness of information in this document.
== END 2023-08-22 12:12 | disposition home or self-care (01) ==
LOC: PM 12:11
PROVIDERS: Visit Provider Nurse Practitioner
DX: M48.062 Spinal stenosis, lumbar region with neurogenic claudication (principal)
CPT/HCPCS: G0463